=== PATIENT | female | born 1995 | race Caucasian/White ===

== ENCOUNTER 2023-02-17 07:05 | Outpatient (CLI) | payer MEDICAID, SELFPAY ==
[2023-02-17 07:25] VITALS: BP 113/57; PULSE 72
[2023-02-17 07:27] VITALS: PULSE 82; O2SAT 98
[2023-02-17] MEDS: TERBUTALINE 1 MG/ML INJ 0.25 MG SUBCUT (08:18)
--- NOTE | 2023-02-17 09:09 | PM.OBLDTN ---
OB - Triage/Final Diagnosis Visit Information Narrative: The patient is a [] year old [] para [] at [] weeks gestation by [], who presents with []. [] Evaluation Vital signs: Vital Signs - 24 hr 02/17/23 07:25 02/17/23 07:27 Pulse Rate 72 Blood Pressure 113/57 L Pulse Oximetry 98
--- NOTE | 2023-02-17 09:20 | PM.PROC ---
Procedure Note Time Seen by Provider: 08:00 Date Seen: 02/17/23 Date of procedure: 02/17/23 Will [facility] bill your pro fee for this procedure?: Yes Procedure Description: Pre-op diagnosis: Breech presentation Post-op diagnosis: Vertex presentation Procedure: External cephalic version Procedure Description: PREOPERATIVE DIAGNOSIS:? 1.? Intrauterine at 37 4/7 weeks gestation. 2.? Breech presentation. POSTOPERATIVE DIAGNOSIS:? 1.? Intrauterine at 37 4/7 weeks gestation. 2.? Vertex presentation. PROCEDURE:? 1.? Nonstress test. 2.? Limited OB ultrasound. 3.? External cephalic version. SURGEON:? Loren Perry MD CARPORT ERECTOR:? Frances Caro MD ANESTHESIA:? None. COMPLICATIONS:? None. FINDINGS:? Nonstress test: Reassuring. heart rate baseline 130s beats per minute, moderate variability, 15 x 15 accelerations present, no decelerations.? Limited OB ultrasound:? Single, living, intrauterine gestation in a complete breech presentation with the back along the maternal right, grossly normal amniotic fluid volume. PROCEDURE NOTE:? A nonstress test was performed, which was reactive and reassuring.? A limited OB ultrasound was performed at the bedside to determine position.? Findings noted above.? Informed consent was obtained for external cephalic version.? Terbutaline 0.25 mg was administered to the patient subcutaneously.? External cephalic version was attempted.?Dr. Caro applied upward pressure to the breech, I applied pressure to the vertex, and we attempted to gently coax the fetus in a forward roll in a clockwise direction. Initial attempt moved fetus to transverse position. We attempted another forward roll in the clockwise direction. This attempt was successful.? heart tones were noted to be normal during intermittent assessment with bedside ultrasound. The patient tolerated the procedure well. monitoring for 1 hour after the procedure was continued to be reassuring. Patient stable and appropriate for discharge after 1 hour of monitoring. Wet And Dry Sugar Bin Operator: Frances Caro Estimated blood loss (mL): 0
--- NOTE | 2023-02-17 10:48 | PC.OBNST ---
NST Note NST Note Start: 02/17/23 07:19 Freq: ONCE Status: Active Protocol: Document 02/17/23 09:45 [facility] (Rec: 02/17/23 10:48 [facility] [id number]) NST Note 1 Para (# of births) 0 EDC 03/06/23 Gestational Age In Weeks & Days 37 Weeks & 4 Days Patient Presented with Complaint(s) of Other Other Complaints monitor for ECV Reactive Yes Appropriate for Gestational Age Yes RN Case RN Date 02/17/23 Reactive Yes Appropriate for Gestational Age Yes KASSIDY Spears RNC Date 02/17/23 OB NST charge Yes Complete NST Note via Write Note Yes The provider's electronic signature indicates the NST is reactive/appropriate for gestational age. *Note to provider: If an addendum is required, open the patient's chart and click on the note under the Nurse/Allied Health tab.
== END 2023-02-17 10:30 | disposition home or self-care (01) ==
LOC: OB 10:09 → OB CLI 11:13 → OB 11:14
PROVIDERS: PCP Family Medicine; Visit Provider Obstetrics & Gynecology
DX: O32.1XX0 Maternal care for breech presentation, not applicable or unspecified (principal); Z3A.37 37 weeks gestation of pregnancy
CPT/HCPCS: 59025; 59412; 76815; 99211; T1013; J3105

== ENCOUNTER 2023-02-25 23:12 | Outpatient (CLI) | payer MEDICAID, SELFPAY ==
[2023-02-25 23:23] VITALS: PULSE 77; O2SAT 99
[2023-02-25 23:28] VITALS: PULSE 75; O2SAT 99
[2023-02-25 23:32] VITALS: BP 119/66; PULSE 68
[2023-02-25 23:33] VITALS: RESP 16; TEMP 36.9
[2023-02-26] MEDS: MORPHINE 10 MG/ML inj IM (01:00)
[2023-02-26] MEDS: hydrOXYzine pamoate 25 MG CAPSULE 100 MG PO (01:00)
--- NOTE | 2023-02-26 01:14 | PC.OBNST ---
NST Note NST Note Start: 02/26/23 00:52 Freq: ONCE Status: Active Protocol: Document 02/26/23 01:13 [facility] (Rec: 02/26/23 01:13 [facility] [id number]) NST Note 1 Para (# of births) 0 EDC 03/06/23 Gestational Age In Weeks & Days 38 Weeks & 6 Days Patient Presented with Complaint(s) of Contractions/cramping Reactive Yes Appropriate for Gestational Age Yes KASSIDY Cihldress RN Date 02/26/23 Reactive Yes Appropriate for Gestational Age Yes KASSIDY Peña RNC Date 02/26/23 OB NST charge Yes Complete NST Note via Write Note Yes The provider's electronic signature indicates the NST is reactive/appropriate for gestational age. *Note to provider: If an addendum is required, open the patient's chart and click on the note under the Nurse/Allied Health tab.
== END 2023-02-26 01:05 | disposition home or self-care (01) ==
DX: O47.1 False labor at or after 37 completed weeks of gestation (principal); Z3A.38 38 weeks gestation of pregnancy
CPT/HCPCS: 59025; 99213; A9270; J2270

== ENCOUNTER 2023-03-08 14:15 | Outpatient (CLI) | payer MEDICAID, SELFPAY ==
[2023-03-08 14:28] VITALS: PULSE 69; O2SAT 97
[2023-03-08 14:36] VITALS: BP 102/54; PULSE 58
[2023-03-08 15:19] LABS: Basophils Absolute Auto 0.02 K/uL (0.00-0.30); Basophils Percent Auto 0.2 % (0.0-3.0); Eosinophils Absolute Auto 0.04 K/uL (0.00-0.50); Eosinophils Percent Auto 0.4 % (0.0-7.0); Hematocrit 36.7 % (33.0-51.0); Hemoglobin* 12.3 gm/dL (12.0-16.0); Immature Granulocytes Abs Auto 0.15 K/uL (0.00-0.30); Immature Granulocytes Pct Auto 1.4 %; Lymphocytes Percent Auto 21.5 % (20-44); Mean Corpuscular HGB Conc 34 gm/dL (32-36); Mean Corpuscular Hemoglobin 30 pg (26-34); Mean Corpuscular Volume 89 fL (80-100); Monocytes Percent Auto 7.6 % (0.0-11.0); Neutrophils Absolute Auto 7.37 K/uL (1.7-7.0); Neutrophils Percent Auto 68.9 % (42.0-72.0); Platelet Count* 166 K/uL (140-440); RDW Coefficient of Variation % 13.7 % (11.5-15.5); Red Blood Count 4.14 m/uL (4.00-5.20); White Blood Count* 10.69 K/uL (4.50-11.00)
[2023-03-08 15:24] LABS: Slide Review Reflex No
[2023-03-08] MEDS: ACETAMINOPHEN 500 MG TABLET 1000 MG PO (15:27)
[2023-03-08 15:36] VITALS: RESP 16; TEMP 37.1
[2023-03-08 15:36] LABS: Aspartate Amino Transferase* 36 U/L (12-35); Creatinine* 0.5 mg/dL (0.5-1.5); Estimated Glomerular Filt Rate 133 ml/min
[2023-03-08 15:37] LABS: Alanine Aminotransferase* 15 U/L (4-35); Blood Urea Nitrogen* 3 mg/dL (5-24)
--- NOTE | 2023-03-08 18:16 | PC.OBNST ---
NST Note NST Note Start: 03/08/23 14:29 Freq: ONCE Status: Active Protocol: Document 03/08/23 18:16 [facility] (Rec: 03/08/23 18:16 JRSuhas [id number]) NST Note 1 Para (# of births) 0 EDC 03/06/23 Gestational Age In Weeks & Days 40 Weeks & 2 Days Patient Presented with Complaint(s) of Contractions/cramping Reactive Yes Appropriate for Gestational Age Yes RN Lizzeth Remy RN Date 03/08/23 Reactive Yes Appropriate for Gestational Age Yes KASSIDY Beth RN Date 03/08/23 OB NST charge Yes Complete NST Note via Write Note Yes The provider's electronic signature indicates the NST is reactive/appropriate for gestational age. *Note to provider: If an addendum is required, open the patient's chart and click on the note under the Nurse/Allied Health tab.
== END 2023-03-08 17:20 | disposition home or self-care (01) ==
LOC: OB OUT 14:15 → OB 14:16
PROVIDERS: Family Medicine; PCP Family Medicine; Visit Provider Family Medicine
DX: O47.1 False labor at or after 37 completed weeks of gestation (principal); Z3A.40 40 weeks gestation of pregnancy
CPT/HCPCS: 36415; 59025; 82565; 82570; 84156; 84450; 84460; 84520; 85025; 99213; A9270

== ENCOUNTER 2023-03-10 04:10 | Outpatient (CLI) | payer MEDICAID, SELFPAY ==
[2023-03-10 04:25] VITALS: BP 110/63; PULSE 72; RESP 20; TEMP 36.8; O2SAT 98
[2023-03-10 07:45] VITALS: BP 113/59; PULSE 58; TEMP 36.6
[2023-03-10] MEDS: ONDANSETRON ODT 4 MG TAB PO (09:57)
[2023-03-10] MEDS: hydrOXYzine pamoate 25 MG CAPSULE 100 MG PO ×2 (09:59→15:35)
[2023-03-10] MEDS: MORPHINE 10 MG/ML inj IM ×2 (10:00→15:38)
[2023-03-10] MEDS: LACTATED RINGERS 1000 ML 1,000 ML 900 ML IV (13:30)
[2023-03-10 15:32] VITALS: BP 116/64; PULSE 85; TEMP 36.6
--- NOTE | 2023-03-10 17:03 | PC.OBNST ---
NST Note NST Note Start: 03/10/23 04:15 Freq: ONCE Status: Active Protocol: Document 03/10/23 16:57 [facility] (Rec: 03/10/23 16:58 [facility] [id number]) NST Note 1 Para (# of births) 0 EDC 03/06/23 Gestational Age In Weeks & Days 40 Weeks & 4 Days Patient Presented with Complaint(s) of Contractions/cramping Reactive Yes Appropriate for Gestational Age Yes KASSIDY Funez Date 03/10/23 Reactive Yes Appropriate for Gestational Age Yes KASSIDY Ortiz Date 03/10/23 OB NST charge Yes Complete NST Note via Write Note Yes The provider's electronic signature indicates the NST is reactive/appropriate for gestational age. *Note to provider: If an addendum is required, open the patient's chart and click on the note under the Nurse/Allied Health tab.
== END 2023-03-10 16:00 | disposition home or self-care (01) ==
LOC: OB OUT 04:10 → OB 04:11
PROVIDERS: PCP Family Medicine; Visit Provider Family Medicine
DX: O47.1 False labor at or after 37 completed weeks of gestation (principal); Z3A.40 40 weeks gestation of pregnancy
CPT/HCPCS: 59025; 99213; A9270; J2270; J7120

== ENCOUNTER 2023-03-10 22:02 | Inpatient (IN) | payer MEDICAID, SELFPAY ==
[2023-03-10] VITALS (21 sets, daily range): BP systolic 100–123; BP diastolic 50–74; PULSE 73–85; RESP 16; TEMP 37.1; O2SAT 85–100; BMI 27.7
[2023-03-10] MEDS: LACTATED RINGERS 1000 ML 1,000 ML IV (22:11)
[2023-03-10] MEDS: ROPIVACAINE 0.2% 100 ml 100 ML 12 MG EPIDURAL (23:04)
[2023-03-10] MEDS: LIDOCAINE 2% (PF) 5 ML VIAL EPIDURAL (23:04)
--- NOTE | 2023-03-10 23:09 | P.ANBPRC_ITS ---
PFSH PFSH Social History What is your current living situation?: I presently have a place to live Problems where you live: no known problems In the past 12 months, utilities in danger of being shut off: no In the past 12 mos, have been you worried that your food would run out before you had money to buy more?: never true In the past 12 mos, the food you bought just didn't last and you didn't have money to buy more?: never true Smoking Status: Never smoker How often does anyone, including family, friends and others, physically hurt you : never How often does anyone, including family, friends and others, insult or talk down to you: never How often does anyone, including family, friends and others, threaten you with harm: never How often does anyone, including family, friends and others, scream or curse at you: never Meds Home Medications and Allergies Home Medications Medication Instructions Recorded Confirmed Type vitamin-ferrous fumarate 1 tab PO QDAY 02/14/23 03/10/23 History 28 mg iron-folic acid 800 mcg tablet ( Vitamins with Minerals) albuterol 90 mcg/actuation aerosol mcg inhalation PRN Allergy Induced 02/25/23 History inhaler Asthma Allergies Allergy/AdvReac Type Severity Reaction Status Date / Time No Known Allergies Allergy Mild Verified 03/10/23 22:16 pet dander Allergy Mild Hives Uncoded 02/25/23 23:31 Results Vital Signs Vital Signs: Last Vital Signs Pulse 77 03/10/23 23:08 BP 114/64 03/10/23 23:08 Pulse Ox 100 03/10/23 22:56 Weight: 75.614 kg Height: 165.1 cm Anesthesia Procedures Epidural Insertion Patient Location: OB Start Time: 22:15 Stop Time: 23:15 Start Date: 03/10/23 Stop Date: 03/10/23 Reason for Block: primary anesthetic Patient Position: sitting Performed By: Ryder Barrientos Preanesthetic Checklist: IV checked, risks and benefits discussed, surgical consent, monitors and equipment checked, pre-op evaluation, timeout performed and anesthesia consent Prep: chlorhexidine gluconate Monitoring: blood pressure monitoring, monitor and storage bin tender, continuous pulse oximetry and heart rate Approach: midline Vertebral Space: lumbar (1-5) Needle Type: Tuohy needle Injection Technique: continuous catheter (catheter) Needle gauge: 17 Needle Length (cm): 10 cm Needle Insertion Depth (cm): 5 Catheter Gauge: 19 Catheter Type: multi-orifice Catheter at skin depth (cm): 10 Test Dose Result: negative and lidocaine 1.5% with epinephrine 1 to 200,000
[2023-03-11] VITALS (48 sets, daily range): BP systolic 84–124; BP diastolic 44–72; PULSE 67–109; RESP 16–18; TEMP 36.4–37.8; O2SAT 99–100
[2023-03-11] MEDS: PHENYLEPHRINE 100 MCG/ML SYRINGE IVP ×2 (00:31→05:37)
[2023-03-11] MEDS: ePHEDrine sulfate 5 MG/ML inj 10 MG IVP ×2 (00:44→01:16)
[2023-03-11] MEDS: OXYTOCIN 30 unit/500 ML in NS 30 UNIT/500 ML BAG IVPB (04:26)
[2023-03-11] MEDS: LACTATED RINGERS 1000 ML 1,000 ML 125 ML IV (06:02)
[2023-03-11] MEDS: ROPIVACAINE 0.2% 100 ml 100 ML 12 MG EPIDURAL (06:06)
[2023-03-11] MEDS: miSOPROStoL 800 MCG/4 TABLET PR (09:15)
--- NOTE | 2023-03-11 10:06 | PM.OBHPLI ---
OB - H&P: HPI Labor/Induction History of Present Illness Time Seen by Provider: 10:06 Date Seen: 03/11/23 Chief Complaint: The patient is a 27 year old 1 para 0 at 40+4 weeks gestation by LMP, who presents with contractions. Chief complaint: Maternity Narrative: Bessie Zelaya is a 27 year old female by LMP who presents with contractions. was complicated by some limited care, with initial perineal intake then lost to follow-up until approximately 25 weeks. Did receive consistent care in the 3rd trimester. GBS negative. She was initially evaluated in the Center in the AM on 03/10/23 for labor rule out. Srinivas regularly, but only dilated 1 cm over the course of several hours. Ultimately discharged home. She returned around 2200 on 03/10 and was found to be 3/90/-1 with intense and regular contractions. She was admitted. Received epidural per request for pain management. She progressed to complete with Pitocin augmentation and delivered a viable female at 0908 on 03/11. Mom and baby are now resting comfortably. History of Present Dating criteria: based on LMP care: limited care Ultrasounds: normal mid trimester US Abnormal ultrasound findings: -21 weeks survey ultrasound was normal with the exception of head circumference <2nd percentile -34 week growth ultrasound showed EFW 23rd percentile and head circumference 3rd percentile complications comment: Breech presentation. Successful ECV at 37 weeks. Medical complications: none Labs Blood type: A (+) positive Rubella: immune RPR/VDLR: nonreactive GBS status: negative HBsAG: negative Review of Systems Status of ROS: Reports: 10 or more systems reviewed and unremarkable except as noted in History and below Meds Home Medications and Allergies Home Medications Medication Instructions Recorded Confirmed Type vitamin-ferrous fumarate 1 tab PO QDAY 02/14/23 03/10/23 History 28 mg iron-folic acid 800 mcg tablet ( Vitamins with Minerals) albuterol 90 mcg/actuation aerosol mcg inhalation PRN Allergy Induced 02/25/23 History inhaler Asthma Allergies Allergy/AdvReac Type Severity Reaction Status Date / Time No Known Allergies Allergy Mild Verified 03/10/23 22:16 pet dander Allergy Mild Hives Uncoded 02/25/23 23:31 OB - H&P: Exam Physical Exam: Vital signs: Temp Pulse Resp BP Pulse Ox 98.3 F 77 16 103/65 100 07/07/23 09:31 03/11/23 09:31 03/11/23 09:31 03/11/23 09:03/10/23 22:56 Narrative: General appearance: Well-appearing adult female. Alert, oriented and appropriate. Sitting up in hospital bed. HEENT: EOMI, no conjunctival injection or discharge. MMM. Neck: Supple. CV: RRR, no rubs, murmurs or extra heart sounds. Pulm: CTAB, no wheezes, rales or rhonchi. Abdomen: Soft, non-tender. Fundus palpated 2 cm below the umbilicus. MSK: Moving all extremities. Ext: Warm and well-perfused. No LE edema. Skin: No rashes appreciated over exposed skin. Neuro: Grossly normal strength and sensation. No focal deficits. Psych: Normal affect. OB - Problem Based A/P Additional Plan (1) Term : Problem details: Spontaneous labor, . Received rectal cytotec after delivery. QBL 473. Status: Acute Plan: - Normal post- cares. - Anticipate discharge 03/12 or 03/13
--- NOTE | 2023-03-11 10:39 | W.PM.OBVAGDE ---
OB Procedure Vag Delivery Mother Details Mother Details: The patient is a 27 year-old, 1, Para 0, admitted on 03/10/23 at Days gestation. : 1 Para: 0 Weeks Gestation: 40.5 Admission Date: 03/10/23 Additional Details Amniotic Membrane Status: SROM Amniotic Membrane Rupture Date: 03/11/23 Amniotic Membrane Rupture Time: 00:30 Amniotic Membrane Fluid Description: Meconium Stained Analgesia/Anesthesia Type: Epidural Waterbirth: No Pitcoin: Yes Intrapartal Events: Labor Augmentation Delivery augmentation: pitocin Labor Onset: 00:30 Complete: 08:14 Pushin:20 Heart: heart tones during second stage were category 2. Early decels with pushing, good recovery. Delivery Details Delivery Date: 03/11/23 Delivery Time: 09:08 Route of delivery: Gender: Female Viability: Alive; Heart Rate Present Position at Delivery: OA Delivery Details: Delivered over intact perineum via spontaneous vaginal delivery. Rectal cyctotec 800 mcg was given for uterine oozing. was placed on maternal abdomen.? Cord was clamped and cut after a 30-60 second delay. Nose and mouth were bulb suctioned.? Infant weight pending. 1 Minute Interval Total Score: 8 5 Minute Interval Total Score: 9 Additional Details Shoulder Dystocia: No Placenta Delivery Time: 09:13 Placental Delivery Description: Spontaneous Delivery repair: Vicryl Procedure Done: Global Blood Loss: 473 Laceration: Periurethral - 1st Degree (bilateral periurethral and left vaginal first degree) Episiotomy Description: None Blood Loss Measurement Type: QBL Bakri Used: No Sponge/Need Count Correct: Yes Cord Vessel Description: 3 Vessels, Nuchal Cord (x2) and Delivered through Event Summary Status: Mother and infant were stable after delivery. Disposition: floor
[2023-03-11] MEDS: IBUPROFEN 600 MG TABLET PO ×2 (13:06→21:18)
[2023-03-12 01:02] VITALS: BP 109/69; PULSE 75; RESP 16; TEMP 36.4; O2SAT 98
[2023-03-12] MEDS: ACETAMINOPHEN 500 MG TABLET 1000 MG PO (01:08)
[2023-03-12 04:52] VITALS: BP 89/51; PULSE 75; RESP 16; TEMP 36.3; O2SAT 98
[2023-03-12 06:53] LABS: Hemoglobin* 11.4 gm/dL (12.0-16.0)
[2023-03-12 08:15] VITALS: BP 92/51; PULSE 74; RESP 16; TEMP 36.3; O2SAT 98
--- NOTE | 2023-03-12 09:09 | PM.OBDSVD1 ---
DS: Providers Provider Date Seen: 03/12/23 Date of admission: 03/10/23 22:02 Primary care physician: Phoebe Whitehead MD Admitting Clinician: Phoebe Whitehead MD Attending Physician on discharge: Phoebe Whitehead MD Date of Discharge: 03/12/23 DS: Diagnosis Discharge Diagnosis (1) Vaginal delivery: Status: Acute (2) Term : Status: Acute Problem details: Spontaneous labor, . Received rectal cytotec after delivery. QBL 473. Exam Const: Vital Signs, click to edit/add: Vital Signs - 24 hr 03/11/23 09:17 03/11/23 09:31 03/11/23 09:31 Temperature 98.3 F Pulse Rate 72 77 Pulse Rate [Blood Pressure Cuff] Pulse Rate [Radial ] Respiratory Rate 16 Blood Pressure 111/67 103/65 Blood Pressure [Ri ght Arm] Pulse [facility]xim[facility] 10:09 03/11/23 10:22 03/11/23 10:23 Temperature 98.3 F Pulse Rate 74 70 Pulse Rate [Blood Pressure Cuff] Pulse Rate [Radial ] Respiratory Rate 16 Blood Pressure 121/66 119/57 L Blood Pressure [Ri ght Arm] Pulse Oximetry 100 [facility] 03/11/23 10:37 03/11/23 10:37 03/11/23 10:52 Temperature Pulse Rate 74 81 Pulse Rate [Blood Pressure Cuff] Pulse Rate [Radial ] Respiratory Rate 16 Blood Pressure 122/58 L 118/69 Blood Pressure [Ri ght Arm] Pulse Oximetry Oxygen Delivery [facility] 03/11/23 10:55 03/11/23 11:07 03/11/23 11:07 Temperature 98.1 F Pulse Rate 91 Pulse Rate [Blood Pressure Cuff] Pulse Rate [Radial ] Respiratory Rate 16 16 Blood Pressure 118/58 L Blood Pressure [Ri ght Arm] Pulse Oximetry 100 100 [facility] 03/11/23 11:22 03/11/23 11:24 03/11/23 12:00 Temperature 100.1 F H Pulse Rate 101 H Pulse Rate [Blood Pressure Cuff] Pulse Rate [Radial ] 90 Respiratory Rate 16 16 Blood Pressure 117/57 L Blood Pressure [Ri ght Arm] 124/72 Pulse Oximetry [facility] 03/11/23 13:00 03/11/23 17:15 03/11/23 19:26 Temperature 98.9 F 98.3 F 97.6 F Pulse Rate Pulse Rate [Blood Pressure Cuff] 98 82 Pulse Rate [Radial ] Respiratory Rate 18 16 Blood Pressure Blood Pressure [Ri ght Arm] 101/67 107/65 Pulse Oximetry 99 Oxygen Delivery Me thod Room Air 03/12/23 01:02 03/12/23 04:52 Temperature 97.6 F 97.4 F L Pulse Rate Pulse Rate [Blood Pressure Cuff] 75 75 Pulse Rate [Radial ] Respiratory Rate 16 16 Blood Pressure Blood Pressure [Ri ght Arm] 109/69 89/51 L Pulse Oximetry 98 98 Oxygen Delivery Me thod Room Air Room Air Common normals: no apparent distress and average body habitus GI: Other: Soft, non tender, uterus firm 2 cm below umbilicus. OB - DS: Summary Hospital Course Hospital Course: The patient is a 27 year old G 1 P 1 at 40+5 weeks gestation that was admitted to the Center on 03/10/23 for active labor. She had an uncomplicated vaginal delivery. She delivered a viable female . She is breast feeding. the patient has done well. Peripartum Data Infant delivery method: Vaginal Laceration description: Vaginal - 1st Degree complications: none Bryant Infant Gender: Female Infant Discharge Plan: Home Status at Discharge Functional status at discharge: independent ambulation Overall status at discharge: patient is progressing back to baseline Time Spent with Patient Time attestation: Total time spent providing and/or coordinating discharge services: Discharge Plan Discharge Disposition: Home, Self-Care Date of Admission: 03/10/23 22:02 Primary Care Provider: Phoebe Whitehead I Condition: Improved Anticipated Discharge Date/Time: 03/12/23 09:12 Discharge Medications: New docusate sodium 100 mg Capsule 100 mg PO DAILY Qty: 30 0RF ibuprofen 600 mg Tablet 600 mg PO Q6H PRNQty: 30 0RF Continued vit-iron fum-folic ac [ Vitamin with Minerals] 28 mg iron- 800 mcg tablet 1 tab PO QDAY albuterol 90 mcg/actuation aerosol inhalation PRN Discharge Orders: Discharge Order (Routine); Ordered 03/12/23 Ordered By: Lucero Gauthier Patient Education: OB Vaginal/Breast Feeding Activity Level: Activity as Tolerated Activity Detail: nothing per vagina x6 weeks Discharge Diet: Regular Follow Up Appointments: Phoebe Whitehead MD [Primary Care Provider] - (post visit in 6 weeks.) Forms: [employer] Info Instructions
[2023-03-12] MEDS: IBUPROFEN 600 MG TABLET PO (12:15)
== END 2023-03-12 13:45 | disposition home or self-care (01) | DRG 560 ==
LOC: OB OUT 22:03 → OB 22:03
PROVIDERS: Admitting Provider Family Medicine; PCP Family Medicine; Visit Provider Family Medicine
DX: O77.0 Labor and delivery complicated by meconium in amniotic fluid (principal); Z3A.40 40 weeks gestation of pregnancy; O70.0 First degree perineal laceration during delivery; Z37.0 Single live birth
CPT/HCPCS: 01967; 36415; 51798; 85018; A9270; J2371; J2795; J7120

== ENCOUNTER 2023-05-04 14:43 | Emergency (ER) | payer BC, SELFPAY ==
[2023-05-04 14:51] VITALS: BP 109/68; PULSE 67; RESP 16; TEMP 36.8; O2SAT 99; BMI 27.5
[2023-05-04 17:07] LABS: Clue Cells No Clue Cells Seen (None Seen); Trichomonas No Trichomonas Seen (None Seen); Yeast Yeast Seen (None Seen)
--- NOTE | 2023-05-04 17:28 | ED_ITS ---
HPI - Female Genitourinary General Date Seen: 05/04/23 Chief complaint: Vaginal Bleeding Stated complaint: Two months bleeding, pain Time Seen by Provider: 05/04/23 16:02 Source: patient Mode of arrival: ambulatory Limitations: no limitations History of Present Illness HPI Narrative: Patient is 28-year-old female who speaks Romanian in through the program and research coordinator find out she is having recurrent vaginal infections she is 2 months normal spontaneous vaginal delivery, there was at least a little bit of repair, she has had normal intercourse since then. She denies any fevers chills or sweats she has had a little bit of discomfort, and this is her 1st period since she had her delivery. She is not on any control, but says she cannot be . She is using some creams, she called her physician and they said they were unable to see her today. No significant abdominal pain back pain fevers chills sweats nausea vomiting eating drinking normally Related Data Home Medications Medication Instructions Recorded Confirmed vitamin-ferrous fumarate 1 tab PO QDAY 02/14/23 05/04/23 28 mg iron-folic acid 800 mcg tablet ( Vitamins with Minerals) albuterol 90 mcg/actuation aerosol mcg inhalation PRN Allergy Induced 02/25/23 inhaler Asthma Previous Rx's Medication Instructions Recorded docusate sodium 100 mg capsule 100 mg PO DAILY #30 caps 03/12/23 ibuprofen 600 mg tablet 600 mg PO Q6H PRN #30 tabs 03/12/23 fluconazole 150 mg tablet 150 mg PO DAILY #1 tab 05/04/23 (Diflucan) Allergies Allergy/AdvReac Type Severity Reaction Status Date / Time pet dander Allergy Mild Hives Uncoded 02/25/23 23:31 Review of Systems Status of ROS: Reports: 10 or more systems reviewed and unremarkable except as noted in History and below PFSH PFS Social History What is your current living situation?: I presently have a place to live Problems where you live: no known problems In the past 12 months, utilities in danger of being shut off: no In the past 12 mos, have been you worried that your food would run out before you had money to buy more?: never true In the past 12 mos, the food you bought just didn't last and you didn't have money to buy more?: never true Smoking Status: Never smoker Non-prescribed substance use: denies use How often does anyone, including family, friends and others, physically hurt you : never How often does anyone, including family, friends and others, insult or talk down to you: never How often does anyone, including family, friends and others, threaten you with harm: never How often does anyone, including family, friends and others, scream or curse at you: never Exam Narrative: Exam Narrative: On examination she is in no apparent distress her abdomen is soft, there is no tenderness no organomegaly bowel sounds are normal with a nurse present bimanual exam is done, a lot a cream in discharge is noted. A little bit of bleeding but no corey clots are noted, her uterus is not tender to palpation on bimanual examination notice she have any adnexal tenderness. Swabs are done for GC and chlamydia and wet prep, wet prep shows a lot a yeast but negative clue cells. Const: Vital Signs, click to edit/add: Vital Signs - 24 hr 05/04/23 14:51 Temperature 98.2 F Pulse Rate [Pulse Oximeter] 67 Respiratory Rate 16 Blood Pressure [Ri ght Upper Arm] 109/68 Pulse Oximetry 99 Oxygen Delivery Me thod Room Air Course Vital Signs Vital signs: Initial Vital Signs Temperature 98.2 F 05/04/23 14:51 Temperature Source Temporal Artery Scan 05/04/23 14:51 Pulse Rate 67 05/04/23 14:51 Pulse Rhythm Regular 05/04/23 14:51 Pulse Strength 3+ Normal 05/04/23 14:51 Respiratory Rate 16 05/04/23 14:51 Blood Pressure 109/68 05/04/23 14:51 Blood Pressure Mean 81 05/04/23 14:51 Blood Pressure Position Sitting 05/04/23 14:51 Pulse Oximetry 99 05/04/23 14:51 Oxygen Delivery Method Room Air 05/04/23 14:51 Vital Signs Temperature 98.2 F 05/04/23 14:51 Pulse Rate 67 05/04/23 14:51 Respiratory Rate 16 05/04/23 14:51 Blood Pressure 109/68 05/04/23 14:51 Pulse Oximetry 99 05/04/23 14:51 Oxygen Delivery Method Room Air 05/04/23 14:51 Temperature 98.2 F 05/04/23 14:51 Pulse Rate 67 05/04/23 14:51 Respiratory Rate 16 05/04/23 14:51 Blood Pressure 109/68 05/04/23 14:51 Pulse Oximetry 99 05/04/23 14:51 Oxygen Delivery Method Room Air 05/04/23 14:51 MDM - Female Genitourinary MDM Narrative Medical decision making narrative: I explained to her we will call her for GC and chlamydia are positive, I suspect this is use, we will dose her with Diflucan x1 dose I will get her to follow up with primary care. Medical Records Attestation: I reviewed the patient's medical records. Lab Data Attestation: I reviewed the patient's lab results. Labs: Lab Results 05/04/23 Range/Units 16:28 Vaginal Trichomonas No Trichomonas Seen (None Seen) Vaginal Yeast Yeast Seen (None Seen) Vaginal Clue Cells No Clue Cells Seen (None Seen) Discharge Plan Discharge Clinical Impression: Yeast vaginitis, Dysfunctional uterine bleeding Patient Disposition: Home, Self-Care Condition: Stable Instructions: Abnormal (Dysfunctional) Uterine Bleeding (ED), Yeast Infection (ED) Additional Instructions: Is normal to have dysfunctional uterine bleeding after to deliver a baby, I do not find any evidence of any other significant issues, ibuprofen for the discomfort, and the medication I prescribed for this, 1 time dose. Follow-up with primary care, as they are the specialist in this treatment. Prescriptions: New fluconazole [Diflucan] 150 mg tablet 150 mg PO DAILY Qty: 1 0RF No Action vit-iron fum-folic ac [ Vitamin with Minerals] 28 mg iron- 800 mcg tablet 1 tab PO QDAY docusate sodium 100 mg Capsule 100 mg PO DAILY Qty: 30 0RF ibuprofen 600 mg Tablet 600 mg PO Q6H PRNQty: 30 0RF albuterol 90 mcg/actuation aerosol inhalation PRN Follow Up/Referrals: Phoebe Whitehead MD [Primary Care Provider] - Stand Alone Forms: [employer] Info Instructions
[2023-05-04 18:12] LABS: Chlamydia DNA Amplified* NOT DETECTED (No Detected); GC DNA Amplified* NOT DETECTED (No Detected)
--- NOTE | 2023-05-04 18:29 | ED.NURSE ---
Attempted to call patient with results, unable to get though or leave message.
== END 2023-05-04 17:45 | disposition home or self-care (01) ==
PROVIDERS: Emergency Provider Family Medicine; PCP Family Medicine
DX: O72.1 Other immediate postpartum hemorrhage (principal); O98.83 Other maternal infectious and parasitic diseases complicating the puerperium; B37.31 Acute candidiasis of vulva and vagina
CPT/HCPCS: 87210; 87491; 87591; 99283